=== PATIENT | male | born 2000 | race Caucasian/White ===

== ENCOUNTER 2022-04-15 17:42 | Emergency (ER) | payer OTHER ==
[~2022-04-15] VITALS: Ht 180.3 cm; Wt 74.5 kg
[2022-04-15] MEDS ORDERED: IBUP80TA PO (21:12)
[2022-04-15 21:29] VITALS: BP 130/78
== END 2022-04-15 21:32 | disposition home or self-care (01) ==
LOC: M ED 17:42
DX: M76.61 Achilles tendinitis, right leg (principal); F17.200 Nicotine dependence, unspecified, uncomplicated